=== PATIENT | male | born 1980 | race Caucasian/White ===

== ENCOUNTER → 2016-06-08 | Outpatient (CLI) | payer OTHER | LOC: C.LAB 03:18 | DX: Z02.83 Encounter for blood-alcohol and blood-drug test (principal) ==

== ENCOUNTER → 2016-10-07 | Outpatient (CLI) | payer BC ==
--- NOTE | 2016-10-07 10:33 | DIAGNOSTIC IMAGING REPORT ---
(TESTICULAR) SCROTUM-CONT CLINICAL HISTORY: 36 years-old Male with N50.9 Mass. Palpable abnormality of the right scrotum. COMPARISON STUDY: None available TECHNIQUE: Real-time, grayscale, and color Doppler sonography of the testes and scrotum is performed. Images are reviewed in the transverse and longitudinal planes. FINDINGS: RIGHT HEMISCROTUM: The right testis measures 5.4 x 2.7 x 3.4 cm and the parenchyma appears homogeneous. No intratesticular mass is seen. Normal-appearing arterial inflow is present within the right testicle. The right epididymal head appears normal. No varicocele or hydrocele is identified. LEFT HEMISCROTUM: The left testis measures 5.2 x 2.6 x 3.2 cm and the parenchyma appears homogeneous apart from a focal ill-defined area of slightly decreased echogenicity of the inferior testicle measuring 0.3 x 0.2 x 0.4 cm with mild associated posterior shadowing. Normal-appearing arterial inflow is present within the left testicle. The left epididymal head appears normal. A small left-sided varicocele is noted measuring up to 0.37 m. This increases with Valsalva. IMPRESSION: 1. No focal abnormality identified in the right testicle or hemiscrotum to correlate with area of palpable concern. No right-sided testicular mass. 2. No evidence of testicular torsion. 3. Focal area of ill-defined decreased echogenicity and posterior shadowing within the inferior left testicle is seen, 0.4 cm. This is nonspecific and recommendation is follow-up scrotal ultrasound in 6 months to exclude progressive abnormality. 4. Small left-sided varicocele. The above report was generated using voice recognition software. It may contain grammatical, syntax or spelling errors. Electronically signed by: Malick Cervantes M.D. 10/07/2016 10:32 AM Dictated Date/Time: 10/07/2016 10:26 AM
== END | disposition home or self-care (01) ==
LOC: C.ULTR 09:56
PROVIDERS: ATTEND Physician Assistant
DX: N50.9 Disorder of male genital organs, unspecified (principal); R93.8 Abnormal findings on diagnostic imaging of other specified body structures; I86.1 Scrotal varices

== ENCOUNTER → 2016-11-12 | Outpatient (CLI) | payer BC ==
--- NOTE | 2016-11-12 14:00 | DIAGNOSTIC IMAGING REPORT ---
TESTICULAR ULTRASOUND CLINICAL HISTORY: N50.9 Mass, scrotal mass COMPARISON STUDY: 10/07/2016 FINDINGS: The right testis measures 57 x 27 x 32 mm. The left testis measures 53 x 20 x 33 mm. There is no evidence of testicular torsion. No right-sided testicular masses are visualized. There is a 4 mm focus of diminished attenuation within the lower pole of the left testis with ill-defined posterior shadowing. This remains unchanged in size from the preceding study. The appearance is nonspecific. A 6 short-term follow-up study would seem appropriate. There is a small left-sided varicocele. There are tiny epididymal cysts. IMPRESSION: 1. No evidence of testicular torsion 2. No right testicular masses identified 3. Nonspecific 4 mm hypoechoic focus within the lower pole of the left testis. The appearance is nonspecific and a small neoplasm cannot be excluded. Short-term ultrasonographic follow-up is recommended. 4. Left-sided varicocele Electronically signed by: Rene Cole M.D. 11/12/2016 1:59 PM Dictated Date/Time: 11/12/2016 1:55 PM
== END | disposition home or self-care (01) ==
LOC: C.ULTR 13:09
PROVIDERS: ATTEND Urology
DX: N50.9 Disorder of male genital organs, unspecified (principal); I86.1 Scrotal varices

== ENCOUNTER → 2017-04-28 | Outpatient (CLI) | payer OTHER ==
--- NOTE | 2017-04-28 14:04 | DIAGNOSTIC IMAGING REPORT ---
(TESTICULAR) SCROTUM-CONT HISTORY: Mass SCROTAL MASS COMPARISON: 11/12/2016 FINDINGS: Right testis: There are no intratesticular masses. Normal color flow. No hydrocele. The epididymis is unremarkable. Left testis: No change in the 3 x 4.5 mm hypoechoic focus lower aspect left testis. Dimensions are slightly advanced due to probe positioning. The remainder left testis is uniform. Small left varicocele IMPRESSION: Stable hypoechoic nodule inferior left testis. No new or interval finding. Continued ultrasound surveillance is recommended at 6-12 month intervals or as clinically indicated. The above report was generated using voice recognition software. It may contain grammatical, syntax or spelling errors. Electronically signed by: Nino Pendleton M.D. 04/28/2017 2:03 PM Dictated Date/Time: 04/28/2017 1:59 PM
== END | disposition home or self-care (01) ==
LOC: C.ULTR 13:26
PROVIDERS: ATTEND Urology
DX: N50.9 Disorder of male genital organs, unspecified (principal)

== ENCOUNTER → 2017-10-14 | Outpatient (CLI) | payer OTHER ==
--- NOTE | 2017-10-14 15:42 | DIAGNOSTIC IMAGING REPORT ---
ULTRASOUND TESTES AND SCROTUM CLINICAL HISTORY: Scrotal mass. COMPARISON STUDY: Scrotal ultrasound dated 04/28/2017 and 10/07/2016. TECHNIQUE: Real-time, grayscale, and color Doppler sonography of the testes and scrotum is performed. Images are reviewed in the transverse and longitudinal planes. FINDINGS: The testes are normal in size and homogeneous in echotexture. The right testis measures 5.4 x 2.3 x 3.0 cm and the left testis measures 5.1 x 2.1 x 3.4 cm. A 4 mm hypoechoic nodule is again identified within the posterior testis. No additional testicular lesion is seen. Testicular blood flow is normal and symmetric. Normal Doppler waveforms are identified in both testes. The epididymal heads are normal in appearance. The right epididymal head measures 1.3 cm in length and the left epididymal head measures 0.7 cm in length. A 3 mm left epididymal head cyst is incidentally noted. No hydrocele is seen. Small bilateral varicoceles measure up to 4 mm, left larger than right. IMPRESSION: 1. There is a 5 mm ill-defined hypoechoic lesion in the inferior pole of the left testis. This has increased in size dating back to 10/07/2016 and neoplasm is the diagnosis of exclusion. 2. Sonographic assessment of the right testis. 3. Small bilateral varicoceles. Electronically signed by: Homero Sanford M.D. 10/14/2017 3:41 PM Dictated Date/Time: 10/14/2017 3:38 PM
== END | disposition home or self-care (01) ==
LOC: C.ULTR 14:46
PROVIDERS: ATTEND Urology
DX: N50.9 Disorder of male genital organs, unspecified (principal)